=== PATIENT | female | born 1995 | race Caucasian/White ===

== ENCOUNTER 2021-01-19 21:34 | Emergency (ER) | payer SELFPAY ==
--- NOTE | ~2021-01-19 | CT_ITS ---
EXAMINATION: CT brain wo con DATE: 01/19/2021 21:59 INDICATION: Syncope. Patient fell and struck head. Left sided head pain fall. TECHNIQUE: Computed tomography (CT) of the head was performed without intravenous contrast. The mA wa s adjusted according to patient size. Iterative reconstruction technique was employed. Exam dose: 60 5.33 mGy-cm total exam DLP. COMPARISON: 12/29/2013 CT head FINDINGS: No intracranial mass lesion or hemorrhage or cerebrovascular accident is evident. Normal ve ntricular size. Normal finley-white matter differentiation. No midline shift or mass effect effect. No subdural or epidural hematoma. No fracture or bone destruction of the cranial vault. IMPRESSION: Negative examination Reviewed, dictated and finalized at [facility] Reviewed, dictated and finalized at [facility]. IMPRESSION: Negative examination
[2021-01-19 21:34] VITALS: BP 119/79; PULSE 112; RESP 20; TEMP 36.9; O2SAT 99
--- NOTE | 2021-01-19 21:41 | ECG_ITS ---
Measurements Intervals [place] Rate: 99 P: 33 SD: 143 QRS: 90 QRSD: 84 T: 51 QT: 341 QTc: 439 Interpretive Statements SINUS RHYTHM MINIMAL WAVES- INF/LAT LEADS BORDERLINE ECG Electronically Signed On 01-20-2021 7:41:53 CDT by Hernando Arango D.O.
--- NOTE | 2021-01-19 21:52 | ED.GENADULT ---
HPI - General Adult General Chief complaint: Syncope Stated complaint: AMB Source: patient and EMS Mode of arrival: ambulatory Limitations: no limitations History of Present Illness HPI narrative: Rosie is a previously healthy 25F that was brought into the ED by EMS after an episode of syncope. According to EMS a bystander said she just collapsed all of a sudden without warning and hit her head. She was unconscous for about 30 seconds. In the ambulance her BP was high 80's systolic. Currently she reports feeling fine an asked why she is in a hospital. She admits marijuana use this evening. Related Data Home Medications Medication Instructions Recorded Confirmed No Home Medications 01/19/21 01/19/21 Allergies Allergy/AdvReac Type Severity Reaction Status Date / Time No Known Allergies Allergy Verified 01/19/21 21:51 Review of Systems Constitutional: Constitutional: Reports no additional constitutional complaints Eyes: Eyes: Reports no additional eye complaints ENT: Reports system reviewed and no additional complaints, except as documented Cardiovascular: Cardiovascular: Reports as per HPI Respiratory: Respiratory: Reports no additional respiratory complaints Gastrointestinal: Gastrointestinal: Reports no additional gastrointestinal complaints Genitourinary: Genitourinary: Reports no additional female genitourinary complaints Musculoskeletal: Musculoskeletal: Reports no additional musculoskeletal complaints Integumentary/Breasts: Skin/Breast: Reports system reviewed and no additional complaints, except as docu Neurologic: Reports as per HPI Psychiatric: Psychiatric: Reports no additional psychiatric complaints Endocrine: Endocrine: Reports no additional endocrine complaints Hematologic/Lymphatic: Hematologic/Lymphatic: Reports no additional hematologic/lymphatic complaints Allergic/Immunologic: Allergic/Immunologic: Reports no additional allergic/immunologic complaints [facility] Social History Social History Smoking status: Current every day smoker Exam Const: General: no acute distress and alert Orientation/consciousness: patient oriented x3 Limitations: No altered mental status HENMT: Head: normal to inspection Other: She has a lot of dried blood on the left side of her scalp but no active bleeding. Only two small lacerations found Eyes: Conjunctivae: conjunctivae normal Pupils: Equal, round and reactive pupils present Neck: Neck: normal visual inspection Chest: Chest palpation & inspection: normal inspection of the chest Resp: Effort & Inspection: normal respiratory effort, not labored and not tachypneic Auscultation: clear to auscultation bilaterally Cardio: Rate: regular rate Rhythm: regular rhythm Heart sounds: no murmurs GI: GI Palp: Yes Soft to palpation, No Tenderness to palpation present (GI) and No Guarding due to palpation present (GI) Skin: General skin exam: normal color Rashes: no rashes Neuro: General: patient oriented x3, moves all extremities and CN's II-XI intact bilaterally Extrem: General: normal to inspection Psych: Appearance: grossly normal Mental Status: mental status grossly normal Thought content: Yes Normal thought content present Course Course Emergency Course: BP came up to 120's systolic so fluids were stopped. EKG showed sinus tachycardia with a rate of 99, normal axis, no ST elevation/depression, no ectopy and a QTC of 397 Labs showed mild hyponatremia, low albumin, a high urine specific gravity and positive test as well as UDS positive for MJ and amphetamines. I brought this up with her and she did not know she was . She did say she has been a little nauseated and has hardly drank much water or ate recently. She then revealed that before she passed out she was standing in a parking lot in 90 degree weather for quite some time with no water. I gave her a sandwich and
[2021-01-19 22:21] LABS: Basophils Absolute Auto 0.02 K/mm3 (0.00-0.10); Basophils Percent Auto 0.2 % (0.0-1.0); Hemoglobin 12.2 g/dL (12.0-15.0); Immature Granulocyte Absolute 0.05 K/mm3 (0.00-0.00); Immature Granulocyte Percent A 0.5 % (0.0-0.0); Lymphocytes Absolute Auto 1.61 K/mm3 (1.10-4.50); Lymphocytes Percent Auto 15.6 % (18.0-42.0); Mean Corpuscular Hemoglobin 29.8 pg (27.0-31.0); Mean Corpuscular Volume 90.5 fL (78.0-102.0); Mean Platelet Volume 9.7 fl (9.2-11.8); Monocytes Absolute Auto 0.48 K/mm3 (0.10-0.90); Monocytes Percent Auto 4.7 % (2.0-11.0); Neutrophils Absolute Auto 8.2 K/mm3 (1.7-7.2); Platelet Count Result 261 K/mm3 (150-420); Red Blood Count 4.09 M/mm3 (4.20-5.40); White Blood Count 10.3 K/mm3 (4.8-10.8)
[2021-01-19 22:22] VITALS: BP 119/79; PULSE 112; RESP 20; TEMP 36.9; O2SAT 99
[2021-01-19 22:47] LABS: Alanine Aminotransferase 22 U/L (14-59); Albumin Level 2.9 g/dL (3.4-5.0); Alkaline Phosphatase 47 U/L (46-116); Anion Gap 10 mmol/L (8-16); Aspartate Amino Transferase 14 U/L (15-37); Bilirubin,Total 0.1 mg/dL (0.00-1.00); Blood Urea Nitrogen 8 mg/dL (7-18); Calcium 8.7 mg/dL (8.5-10.1); Carbon Dioxide 22 mmol/L (21-32); Chloride 101 mmol/L (98-108); Estimated CRCL calculation 134 ml/min; Estimated Glomerular Filt Rate > 60; Glucose 101 mg/dL (70-99); Osmolality Calculated 274 mOsm/kg (285-295); Potassium 3.7 mmol/L (3.5-5.1); Sodium 133 mmol/L (136-145)
[2021-01-19 22:52] LABS: Ethanol < 3 mg/dL (0-6)
[2021-01-19 22:52] LABS: Add Urine Microscopic? YES; Bilirubin Urine 1+ (Negative); Blood Urine Negative (Negative); Color Urine Yellow (Yellow); Glucose Urine UA Negative (Negative); Ketones Urine Trace (Negative); Leukocyte Esterase Ur 1+ (Negative); Nitrate Urine Negative (Negative); Pregnancy On Board Control Positive; Protein Urine 1+ (Negative); Specific Grav Ur 1.025 (1.010-1.020); Urine Pregnancy Test Positive; Urobilinogen Urine 0.2 mg/dL (0.2-1.0); pH Urine 5.5 (5.0-8.0)
[2021-01-19 22:53] LABS: Thyroid Stimulating Hormone 3.97 uIU/mL (0.36-3.74); Troponin I < 4.0 ng/L (0.00-60.4)
[2021-01-19 22:57] LABS: Amphetamine Screen Urine Positive (Negative); Barbiturate Screen Urine Negative (Negative); Benzodiazepines Screen Urine Negative (Negative); Cannabinoid Screen Urine Positive (Negative); Cocaine Screen Urine Negative (Negative); Methadone Screen Urine Negative (Negative); Opiate Screen Urine Negative (Negative); Phencyclidine Screen Urine Negative (Negative)
[2021-01-19 23:02] LABS: Appearance Urine Cloudy (Clear); Bacteria Urine 1+ /hpf; RBC Urine None seen /hpf (0-2); Squamous Epithelial Cell Urine Moderate /hpf (Few); WBC Urine >75 /hpf (0-3)
[2021-01-19 23:03] LABS: Mucus Urine Few /lpf
[2021-01-19 23:51] LABS: HIV 1 P24 AG Negative (Negative); HIV 1/2 AB Negative (Negative)
[2021-01-19 23:57] VITALS: BP 129/89; PULSE 89; RESP 20; TEMP 36.6; O2SAT 100
[2021-01-20] MEDS: SILVER NITRATE (*SP) STICK 1 EACH (00:05)
== END 2021-01-20 00:13 | disposition home or self-care (01) ==
PROVIDERS: Emergency Provider Family Medicine
DX: R55 Syncope and collapse (principal); E86.0 Dehydration; Z33.1 Pregnant state, incidental
CPT/HCPCS: 36415; 70450; 80053; 80307; 81001; 81025; 84443; 84484; 85025; 86703; 93005; 99283; 99284

== ENCOUNTER 2021-05-07 19:27 | Emergency (ER) | payer OTHER, SELFPAY ==
--- NOTE | 2021-05-07 19:50 | ED.FEMALEGU ---
HPI - Female Genitourinary General Chief complaint: Urogenital-Female Stated complaint: vaginal bleeding Source: patient Mode of arrival: ambulatory Limitations: no limitations History of Present Illness HPI Narrative: patient with an episode of rectal bleeding saw bright red blood does have history of hemorrhoids has been having some dysuria with no abdominal pain no fever chills no diarrhea constipation. MD elicited complaint: dysuria Related Data Allergies Allergy/AdvReac Type Severity Reaction Status Date / Time No Known Allergies Allergy Verified 01/19/21 21:51 Review of Systems Review of Systems: All systems reviewed & are unremarkable except as noted in HPI and below PMFSH Past Medical History Medical History Patient denies medical problems Social History Social History Smoking status: Current every day smoker Exam Const: General: no acute distress Orientation/consciousness: patient oriented x3 HENMT: Head: normal to inspection Eyes: Conjunctivae: conjunctivae normal Pupils: Equal, round and reactive pupils present EOM: EOMs intact bilaterally Direct Ophthalmoscopy: no photophobia Neck: Neck: normal visual inspection, no lymphadenopathy and no meningeal signs Resp: Effort & Inspection: normal respiratory effort Auscultation: clear to auscultation bilaterally GI: Other: rectal exam shows some hemorrhoid external at the 6 o'clock position Urinary Catheter: Urinary Catheter: patent and draining Back/Spine/Pelvis: Back: no CVA tenderness Skin: General skin exam: normal color Rashes: no rashes Neuro: General: patient oriented x3 and moves all extremities Extrem: General: normal to inspection and no pedal edema Psych: Mental Status: mental status grossly normal Affect: normal affect Course Course Emergency Course: UA reviewed with patient Critical Care Time Critical Care Time Critical Care Time: No Discharge Plan Discharge Clinical Impression: Hemorrhoid Qualifiers: Hemorrhoid type: unspecified Qualified Code(s): K64.9 - Unspecified hemorrhoids Urinary tract infection Qualifiers: Urinary tract infection type: acute cystitis Hematuria presence: without hematuria Qualified Code(s): N30.00 - Acute cystitis without hematuria Patient Disposition: Home, Self-Care Condition: Stable Instructions: Antibiotic Form, Hemorrhoids (ED), Urinary Tract Infection in Women (ED) Additional Instructions: can use [id number] preparations like witch Stephanie, and take medicine as prescribed. Prescriptions: New nitrofurantoin monohyd/m-cryst [Macrobid] 100 mg capsule 100 mg PO Q12H 7 Days Qty: 14 RF: 0 Follow-up/Referrals: UNKNOWN,DOCTOR [Primary Care Provider] - Time of Disposition: 20:46
[2021-05-07 19:54] VITALS: BP 162/79; PULSE 90; RESP 20; TEMP 36.2; O2SAT 99
[2021-05-07 20:28] LABS: Add Urine Microscopic? YES; Bilirubin Urine Negative (Negative); Blood Urine 2+ (Negative); Color Urine Light Yellow (Yellow); Glucose Urine UA Negative (Negative); Ketones Urine Negative (Negative); Leukocyte Esterase Ur 2+ (Negative); Nitrate Urine Negative (Negative); Protein Urine Negative (Negative); Specific Grav Ur <= 1.005 (1.010-1.020); Urobilinogen Urine 0.2 mg/dL (0.2-1.0); pH Urine 6.5 (5.0-8.0)
[2021-05-07 20:37] LABS: Appearance Urine Sl Cloudy (Clear); Bacteria Urine 1+ /hpf; Squamous Epithelial Cell Urine Moderate /hpf (Few); WBC Clumps Urine Present /hpf; WBC Urine 16-20 /hpf (0-3)
[2021-05-07] MEDS: NITROFURANTOIN MONOHYD MACROCR 100 MG CAP PO (20:50)
[2021-05-07 21:07] VITALS: PULSE 80; RESP 20; O2SAT 98
== END 2021-05-07 21:12 | disposition home or self-care (01) ==
PROVIDERS: Emergency Provider Emergency Medicine
DX: K64.9 Unspecified hemorrhoids (principal); N30.00 Acute cystitis without hematuria
CPT/HCPCS: 81001; 99283; A9270

== ENCOUNTER 2024-01-26 23:00 | Emergency (ER) | payer OTHER, SELFPAY ==
[2024-01-26 23:00] VITALS: BP 124/89; PULSE 98; RESP 18; TEMP 36.8; O2SAT 100
--- NOTE | 2024-01-26 23:35 | ED.FEMALEGU ---
HPI - Female Genitourinary General Chief complaint: Urogenital-Female Stated complaint: STD check Time Seen by Provider: 01/26/24 23:20 Source: patient Mode of arrival: ambulatory Limitations: no limitations History of Present Illness HPI Narrative: patient presents there are 29-year-old asymptomatic concerned for STD wants to be checked. No vaginal discharge no fever chills no risk sexual activity. Related Data Allergies Allergy/AdvReac Type Severity Reaction Status Date / Time No Known Allergies Allergy Verified 05/07/21 20:47 Review of Systems Review of Systems: All systems reviewed & are unremarkable except as noted in HPI and below PMFSH Past Medical History Medical History Patient denies medical problems Social History Social History Smoking status: Current every day smoker Exam Const: General: healthy appearing Nutritional Appearance: well nourished Orientation/consciousness: patient oriented x3 Neck: Neck: normal visual inspection, no lymphadenopathy and no meningeal signs Chest: Chest palpation & inspection: normal inspection of the chest Resp: Effort & Inspection: normal respiratory effort Auscultation: clear to auscultation bilaterally Cardio: Rate: regular rate Rhythm: regular rhythm GI: GI Palp: Yes Soft to palpation Auscultation: normal bowel sounds Skin: General skin exam: normal color Rashes: no rashes Wounds: no wounds Neuro: General: patient oriented x3, moves all extremities and no meningeal signs Extrem: General: normal to inspection Psych: Appearance: grossly normal Course Course Emergency Course: Patient checked for STDs including RPR gonorrhea and chlamydia HIV. Critical Care Time Critical Care Time Critical Care Time: No Discharge Plan Discharge Clinical Impression: STI (sexually transmitted infection) Patient Disposition: Home, Self-Care Condition: Stable Instructions: Antibiotic Form Prescriptions: No Action nitrofurantoin monohyd/m-cryst [Macrobid] 100 mg capsule 100 mg PO Q12H 7 Days Qty: 14 0RF Rx Instructions: must administer with a meal/food Follow-up/Referrals: Irving,Adelaida Lambert MD [Primary Care Provider] -
[2024-01-27 00:11] LABS: Basophils Absolute Auto 0.03 K/mm3 (0.00-0.10); Basophils Percent Auto 0.3 % (0.0-1.0); Hematocrit 39.4 % (35.0-49.0); Hemoglobin 12.9 g/dL (12.0-15.0); Immature Granulocyte Absolute 0.03 K/mm3 (0.00-0.00); Immature Granulocyte Percent A 0.3 % (0.0-0.0); Lymphocytes Absolute Auto 1.45 K/mm3 (1.10-4.50); Lymphocytes Percent Auto 14.6 % (18.0-42.0); Mean Corpuscular HGB Conc 32.7 g/dL (32-36); Mean Corpuscular Hemoglobin 29.6 pg (27.0-31.0); Mean Corpuscular Volume 90.4 fL (78.0-102.0); Mean Platelet Volume 9.1 fl (9.2-11.8); Monocytes Absolute Auto 0.52 K/mm3 (0.10-0.90); Monocytes Percent Auto 5.2 % (2.0-11.0); Neutrophils Absolute Auto 7.89 K/mm3 (1.70-7.20); Neutrophils Percent Auto 79.6 % (50.0-70.0); Platelet Count Result 311 K/mm3 (150-420); Red Blood Count 4.36 M/mm3 (4.20-5.40); Red Cell Distribution Width 13.5 % (11.6-14.4); White Blood Count 9.9 K/mm3 (4.8-10.8)
[2024-01-27 01:05] LABS: HIV 1 P24 AG Negative (Negative); HIV 1/2 AB Negative (Negative)
[2024-01-28 08:13] LABS: Chlamydia trachomatis NOT DETECTED (NOT DETECTE); Neisseria gonorrhoeae PCR NOT DETECTED (NOT DETECTE)
[2024-01-28 13:54] LABS: RPR Screen NON-REACTIVE (NON-REACTIVE)
== END 2024-01-27 00:26 | disposition home or self-care (01) ==
LOC: CHSED 01-27 00:21
PROVIDERS: Emergency Provider Emergency Medicine; PCP Family Medicine
DX: A64 Unspecified sexually transmitted disease (principal); F17.200 Nicotine dependence, unspecified, uncomplicated
CPT/HCPCS: 36415; 85025; 86592; 87491; 87591; 87806; 99284

== ENCOUNTER 2024-06-30 14:27 | Emergency (ER) | payer OTHER, SELFPAY ==
[2024-06-30 14:27] VITALS: BP 151/94; PULSE 92; RESP 16; TEMP 36.4; O2SAT 100
--- NOTE | 2024-06-30 14:34 | ED.EYEPROB ---
HPI - Eye Problem General Chief complaint: Eye Problems Stated complaint: left eye pain Time Seen by Provider: 06/30/24 14:34 Source: patient Mode of arrival: ambulatory Limitations: no limitations History of Present Illness HPI Narrative: 29 year old female presents to the Emergency Department complaining of pain to left eye. Onset yesterday and worse today. Denies any drainage. No visual changes. Denies any injury. No prior history of. MD chief complaint: eye pain Onset (ago): day(s) (1) Duration: constant Location: left eye Treatments Prior to Arrival: none Related Data Allergies Allergy/AdvReac Type Severity Reaction Status Date / Time No Known Allergies Allergy Verified 06/30/24 14:35 Review of Systems Review of Systems: All systems reviewed & are unremarkable except as noted in HPI and below Constitutional: Constitutional: Reports as per HPI, Denies chills and Denies fever(s) Eyes: Eyes: Reports as per HPI and Reports no additional eye complaints ENT: Reports system reviewed and no additional complaints, except as documented Cardiovascular: Cardiovascular: Reports as per HPI and Denies chest pain Respiratory: Respiratory: Reports as per HPI, Denies cough and Denies dyspnea Gastrointestinal: Gastrointestinal: Reports as per HPI, Denies nausea and Denies vomiting Genitourinary: Genitourinary: Reports no additional female genitourinary complaints Musculoskeletal: Musculoskeletal: Reports no additional musculoskeletal complaints Integumentary/Breasts: Skin/Breast: Reports system reviewed and no additional complaints, except as docu Neurologic: Reports system reviewed and no additional complaints, except as documented Psychiatric: Psychiatric: Reports no additional psychiatric complaints Endocrine: Endocrine: Reports no additional endocrine complaints Hematologic/Lymphatic: Hematologic/Lymphatic: Reports no additional hematologic/lymphatic complaints Allergic/Immunologic: Allergic/Immunologic: Reports no additional allergic/immunologic complaints PMFSH Past Medical History Medical History Patient denies medical problems Social History Social History Smoking status: Current every day smoker Exam Const: General: healthy appearing Nutritional Appearance: well nourished Orientation/consciousness: patient oriented x3 Limitations: no limitations HENMT: Head: normal to inspection Ears: external ears normal Face/Nose/Sinus: Normal external nose present Mouth: Yes Normal oral and palatal mucosa present Other: extensive dental decay Eyes: Pupils: Equal, round and reactive pupils present EOM: EOMs intact bilaterally Other: early stye formation to lower left lower lid Neck: Neck: normal visual inspection and no meningeal signs Chest: Chest palpation & inspection: normal inspection of the chest Resp: Effort & Inspection: normal respiratory effort Cardio: Rate: regular rate Rhythm: regular rhythm GI: Inspection: non-distended GI Palp: No Tenderness to palpation present (GI) Back/Spine/Pelvis: Back: no CVA tenderness Skin: General skin exam: normal color Rashes: no rashes Neuro: General: patient oriented x3 Other: grossly normal Extrem: General: normal to inspection Psych: Mental Status: mental status grossly normal Course Course Emergency Course: 29 y/o female presents to the ED c/o left eye pain. Onset yesterday PE: early stye formation left lower eye lid Rx and Instructions Vital Signs Vital signs: Vital Signs Temperature 36.4 C L 06/30/24 14:27 Pulse Rate 92 06/30/24 14:27 Respiratory Rate 16 06/30/24 14:27 Blood Pressure 151/94 H 06/30/24 14:27 Pulse Oximetry 100 06/30/24 14:27 Oxygen Delivery Room Air 06/30/24 14:27 Temperature 36.4 C L 06/30/24 14:27 Pulse Rate 92 06/30/24 14:27 Respiratory Rate 16 06/30/24 14:27 Blood Pressure 151/94 H 06/30/24 14:27 Pulse Oximetry 100 06/30/24 14:27 Oxygen Delivery Room Air 06/30/24 14:27 Discharge Plan Discharge Clinical Impression: Hordeolum externum left lower eyelid, Sty Patient Disposition: Home, Self-Care Condition: Stable Instructions: Antibiotic Form, Stye (ED) Additional Instructions: Use eye drops as directed Warm compresses Follow up Primary Care Physician 2-3 days Patient Language: [place] Prescriptions: New Tobradex ST 0.3-0.05 % drops,suspension 2 drp LEFT EYE Q2H Qty: 5 0RF Follow-up/Referrals: Watt,Adelaida Lambert MD [Primary Care Provider] - Time of Disposition: 14:46
== END 2024-06-30 14:50 | disposition home or self-care (01) ==
LOC: CHSED 14:45
PROVIDERS: Emergency Provider Emergency Medicine; PCP Family Medicine
DX: H00.015 Hordeolum externum left lower eyelid (principal); F17.200 Nicotine dependence, unspecified, uncomplicated
CPT/HCPCS: 99283